=== PATIENT | female | born 1925 | race Caucasian/White ===

== ENCOUNTER 2016-08-29 10:59 | Inpatient (IN) | payer MEDICARE, BC ==
[2016-08-29] MEDS ORDERED: NS 0.9% 1000 ML* 1,000 ML IV SCH ×2 (12:45)
[2016-08-29 13:06] LABS: Hematocrit 35 % (35-47); Hemoglobin 11.6 g/dl (12.0-16.0); Mean Corpuscular HGB Conc 34 g/dl (31-36); Mean Corpuscular Hemoglobin 29 pg (27-31); Mean Corpuscular Volume 88 fL (80-97); Mean Platelet Volume 8 um3 (7.4-10.4); Red Blood Count 3.95 10^6/ul (4.0-5.4); Red Cell Distribution Width 16 % (10.5-15); White Blood Count 10.7 10^3/ul (3.5-10.8)
[2016-08-29 13:23] LABS: ALT 12 U/L (7-52); AST 19 U/L (13-39); Albumin 3.9 g/dL (3.2-5.2); Alkaline Phosphatase 71 U/L (34-104); Anion Gap 7 mmol/L (2-11); Blood Urea Nitrogen 30 mg/dL (6-24); C Reactive Protein 12.41 mg/L (< 5.00); CO2 Carbon Dioxide 24 mmol/L (22-32); Calcium 9.3 mg/dL (8.6-10.3); Chloride 99 mmol/L (101-111); Creatine Kinase 29 U/L (10-223); EGFR African American 44.4 (>60); EGFR Non-African American 34.6 (>60); Glucose 120 mg/dL (70-100); Lipase < 10 U/L (11.0-82.0); Magnesium 2.1 mg/dL (1.9-2.7); Potassium 4.1 mmol/L (3.5-5.0); Sodium 130 mmol/L (133-145); Total Protein 6.9 g/dL (6.4-8.9)
[2016-08-29 13:25] LABS: Troponin I 0.01 ng/mL (<0.04)
--- NOTE | 2016-08-29 13:30 | RAD ---
Indication: Shortness of breath. Single frontal view of the chest performed at 1305 hours was reviewed. Comparison is made with previous exam dated January 16, 2016. Cardiomegaly is noted. Interstitial edema consistent with CHF is noted. Pacemaker leads are in place. IMPRESSION: CARDIOMEGALY WITH EVIDENCE OF CHF.
[2016-08-29 13:57] LABS: TSH (Thyroid Stimulating Horm) 0.46 mcIU/mL (0.34-5.60)
[2016-08-29] MEDS ORDERED: Furosemide IV* 10 MG/ML VIAL (40 MG) IV ONE (14:12)
[2016-08-29 14:23] LABS: Urine Bilirubin Negative (Negative); Urine Glucose Negative (Negative); Urine Nitrite Negative (Negative)
--- NOTE | 2016-08-29 15:50 | ED ---
Martín Parry Auryana, scribed for Marie Yu MD on 08/29/16 at 1316 . Shortness of Breath - HPI Summary HPI Summary: 89 year old female presents with SOB starting last night. She reports that she noticed it during normal activity. She also reports edema - slightly improved form last night. She does report increased salt intake - states "TV dinner meatloaf' and a "hot dog". She denies any cough or any fevers. PMHx is significant for diastolic heart failure - Lasik (40 mg morning and 80 mg night) , atrial fibrillation, and PNA. She is on home O2 (PRN),. SHx is significant for alcohol - rare but denies any tobacco or any recreational drug use. PCP is Dr. Brigida Lucio. - History of Current Complaint Chief Complaint: EDShortnessOfBreath Time Seen by Provider: 08/29/16 13:33 Hx Obtained From: Patient Onset/Duration: Lasting Hours - since last night, Still Present Timing: Constant Current Severity: Mild Dyspnea At: Rest Associated Signs & Symptoms: Edema - and increased salt intake Related History: Similar Episode - PMHx of - see HPI - Allergy/Home Medications Allergies/Adverse Reactions: Allergies Allergy/AdvReac Type Severity Reaction Status Date / Time Lac Bovis Allergy Unknown Unknown Verified 01/22/16 17:35 [From Resource Dairy Thick] Reaction Details Starch Allergy Unknown Unknown Verified 01/22/16 17:35 [From Resource Dairy Thick] Reaction Details Tartrazine Allergy Unknown Unknown Verified 01/22/16 17:35 [From Resource Dairy Thick] Reaction Details Yellow Dye Allergy Unknown Unknown Verified 01/22/16 17:35 [From Resource Dairy Thick] Reaction Details Latex Allergy Rash Verified 01/22/16 17:35 Codeine AdvReac Severe Nausea And Verified 01/22/16 17:35 Vomiting Erythromycin AdvReac Severe Swelling Verified 01/22/16 17:35 Amiodarone AdvReac Intermediate See Comment Verified 01/22/16 17:35 crab Allergy Intermediate Unknown Uncoded 01/22/16 17:35 Reaction Details dairy Allergy Intermediate Unknown Uncoded 01/22/16 17:35 Reaction Details PMH/Surg Hx/FS Hx/Imm Hx Endocrine/Hematology History: Reports: Hx Anticoagulant Therapy - WAS ON EITHER LOVENOX OR HEPARIN, Hx Thyroid Disease - hypothyroid, Hx Anemia Denies: Hx Diabetes Cardiovascular History: Reports: Hx Auto Implanted Cardiovert Defib, Hx Congestive Heart Failure, Hx Coronary Artery Disease, Hx Deep Vein Thrombosis, Hx Embolism, Hx Hypercholesterolemia, Hx Hypertension, Hx Pacemaker/ICD, Hx Valvular Heart Disease Comment Only: Other Cardiovascular Problems/Disorders - HEART MONITOR Respiratory History: Reports: Hx Pleural Effusion, Hx Pneumonia, Other Respiratory Problems/Disorders - PNEUMONIA Comment Only: Hx Chronic Obstructive Pulmonary Disease (COPD) - Pt. denies GI History: Reports: Hx Gastroesophageal Reflux Disease Denies: Hx Jaundice History: Reports: Hx Kidney Stones Denies: Hx Renal Disease Musculoskeletal History: Reports: Hx Arthritis - LOWER BACK OA, Other Musculoskeletal History - L knee replacement Sensory History: Reports: Hx Cataracts, Hx Contacts or Glasses, Hx Macular Degeneration, Hx Vision Problem, Hx Deafness, Hx Hearing Aid Opthamlomology History: Reports: Hx Cataracts, Hx Contacts or Glasses, Hx Macular Degeneration, Hx Vision Problem Neurological History: Reports: Hx Migraine, Other Neuro Impairments/Disorders - macular degeneration Psychiatric History: Reports: Hx Depression - Surgical History Surgery Procedure, Year, and Place: [facility]. 2008 L TOTAL KNEE PA. CABG, cardiac catheterization. AORTIC VALVE REPLACEMENT. CARDIOVERSION 2013 (AFIB - NSR WITH 50 JOULES) Hx Anesthesia Reactions: No - Immunization History Date of Tetanus Vaccine: unknown Date of Influenza Vaccine: fall 2012 Infectious Disease History: No Infectious Disease History: Denies: Traveled Outside the [place] in Last 30 Days - Family History Known Family History: Positive: Other - No history of malignant hyperthermia or anesthesia reaction - Social History Occupation: Retired Lives: Alone Alcohol Use: None Hx Substance Use: No Substance Use Type: Reports: None Hx Tobacco Use: No Smoking Status (MU): Never Smoked Tobacco Review of Systems Positive: Other - increased salt intake . Negative: Fever Eyes: Negative ENT: Negative Cardiovascular: Negative Positive: Shortness Of Breath Gastrointestinal: Negative Genitourinary: Negative Positive: Edema Skin: Negative Neurological: Negative Psychological: Normal All Other Systems Reviewed And Are Negative: Yes Physical Exam - Summary Physical Exam Summary: General: Well appearing, no pain distress Skin: Warm, Skin Color Reflects Adequate Perfusion, Dry Eyes: EOMI, LENORE ENT: Pharynx normal, TMs normal Neck: Supple, nontender Respiratory: CTA, breath sounds present, no rhonchi, no wheezes; Crackles at the right base. Tachypnea. Cardiovascular: RRR, no murmur, no rub, no gallop Abdomen: Soft, nontender, Non-distended, no guarding, no rebound Bowel: Present Musculoskeletal: LEONEL, 2+ bilateral edema. Neuro: Sensory/motor intact, A&Ox3, CN intact 2-12 Psych: Affect/mood appropriate Triage Information Reviewed: Yes Vital Signs On Initial Exam: Initial Vitals Temp Pulse Resp BP Pulse Ox 97.8 F 82 20 110/57 98 08/29/16 11:07 08/29/16 11:07 08/29/16 11:07 08/29/16 11:07 08/29/16 11:07 Vital Signs Reviewed: Yes Diagnostics - Vital Signs Vital Signs Temp Pulse Resp BP Pulse Ox 08/29/16 13:00 70 107/63 93 08/29/16 12:30 74 28 109/61 96 08/29/16 12:04 81 27 96 08/29/16 12:03 107/67 08/29/16 11:07 97.8 F 82 20 110/57 98 - Laboratory Lab Results: Lab Results 08/29/16 Range/Units 13:00 WBC 10.7 (3.5-10.8) 10^3/ul RBC 3.95 L (4.0-5.4) 10^6/ul Hgb 11.6 L (12.0-16.0) g/dl Hct 35 (35-47) % MCV 88 (80-97) fL MCH 29 (27-31) pg MCHC 34 (31-36) g/dl RDW 16 H (10.5-15) % Plt Count 209 (150-450) 10^3/ul MPV 8 (7.4-10.4) um3 Neut % (Auto) 79.3 (38-83) % Lymph % (Auto) 9.8 L (25-47) % [place] % (Auto) 9.2 H (1-9) % Eos % (Auto) 0.6 (0-6) % Baso % (Auto) 1.1 (0-2) % Absolute Neuts (auto) 8.4 H (1.5-7.7) 10^3/ul Absolute Lymphs (auto) 1.0 (1.0-4.8) 10^3/ul Absolute Monos (auto) 1.0 H (0-0.8) 10^3/ul Absolute Eos (auto) 0.1 (0-0.6) 10^3/ul Absolute Basos (auto) 0.1 (0-0.2) 10^3/ul Absolute Nucleated RBC 0 10^3/ul Nucleated RBC % 0 Result Diagrams: 08/29/16 13:00 08/29/16 13:00 Lab Statement: Any lab studies that have been ordered have been reviewed, and results considered in the medical decision making process. - Radiology CXR Xray Interpretation: Positive (See Comments) - IMPRESSION: CARDIOMEGALY WITH EVIDENCE OF CHF. Radiology Interpretation Completed By: Radiologist - EKG 11:15 EKG Interpretation: paced rhythm Course/Dx - Course Course Of Treatment: 89 yo female with sob that started this am, given a dose of iv lasix here still sob pt to be admitted case discussed with Drs. Lucio and Benigno - Diagnoses Provider Diagnoses: Congestive heart failure - Physician Notifications Discussed Care of Patient With: Brigida Lucio Time Discussed With Above Provider: 14:30 Discharge - Discharge Plan Condition: Stable Disposition: ADMITTED TO [facility] The documentation as recorded by the Martín galo Auryana accurately reflects the service I personally performed and the decisions made by , Marie Yu MD.
[2016-08-29] MEDS ORDERED: Potassium Chlor TAB* 20 MEQ TAB.ER PO ONE (16:18)
[2016-08-29] MEDS ORDERED: Acetaminophen TAB* 325 MG PO PRN (16:19)
--- NOTE | 2016-08-29 16:35 | ADMNOTE ---
Subjective Date of Service: 08/29/16 Interval History: ADMISSION HISTORY AND PHYSICAL EXAM: Allergies Allergy/AdvReac Type Severity Reaction Status Date / Time Lac Bovis Allergy Unknown Unknown Verified 01/22/16 17:35 [From Resource Dairy Thick] Reaction Details Starch Allergy Unknown Unknown Verified 01/22/16 17:35 [From Resource Dairy Thick] Reaction Details Tartrazine Allergy Unknown Unknown Verified 01/22/16 17:35 [From Resource Dairy Thick] Reaction Details Yellow Dye Allergy Unknown Unknown Verified 01/22/16 17:35 [From Resource Dairy Thick] Reaction Details Latex Allergy Rash Verified 01/22/16 17:35 Codeine AdvReac Severe Nausea And Verified 01/22/16 17:35 Vomiting Erythromycin AdvReac Severe Swelling Verified 01/22/16 17:35 Amiodarone AdvReac Intermediate See Comment Verified 01/22/16 17:35 crab Allergy Intermediate Unknown Uncoded 01/22/16 17:35 Reaction Details dairy Allergy Intermediate Unknown Uncoded 01/22/16 17:35 Reaction Details Home Medications Medication Instructions Recorded Confirmed Type Acetaminophen TAB* [Tylenol TAB*] 650 mg PO Q4H PRN 03/14/13 01/22/16 History Furosemide TAB* [Lasix TAB*] 40 mg PO QPM 07/02/13 01/22/16 History Levothyroxine TAB* [Synthroid 25 50 mcg PO DAILY 07/02/13 01/22/16 History MCG TAB*] Multiple Vitamins W/ Minerals [Eye 1 cap PO DAILY 07/02/13 01/22/16 History Vitamins] Omeprazole CAP* [Prilosec CAP*] 20 mg PO DAILY PRN 07/02/13 01/22/16 History Potassium Chlor TAB* [POTASSIUM 40 meq PO BID 07/02/13 01/22/16 History TAB*] Furosemide TAB* [Lasix TAB*] 80 mg PO QAM 11/27/13 01/22/16 History Metoprolol Succinate [Metoprolol 50 mg PO QAM 11/27/13 01/22/16 History Succinate ER] Bioflavonoid Products [Vitamin C 1 tab PO DAILY 12/17/13 01/22/16 History Plus 500 mg] Diltiazem HCl Coated Beads 240 mg PO QAM 12/17/13 01/22/16 History [Cardizem LA] Folic Acid 800 mcg PO DAILY 12/17/13 01/22/16 History Metoprolol Succinate [Metoprolol 12.5 mg PO QAM 12/17/13 01/22/16 History Succinate ER] Multiple Vitamins W/ Minerals 1 cap PO BID 12/17/13 01/22/16 History [Preservision Areds] Albuterol 2.5MG/3ML (0.083%)* 2.5 mg INH Q4H 01/22/16 01/22/16 History [Ventolin 2.5 MG/3 ML NEB.JAYDE*] Fluticasone NASAL SPRAY 50MCG* 1 spray BOTH NARES DAILY 01/22/16 01/22/16 History [Flonase NASAL SPRAY 50MCG*] Warfarin TAB(*) [Coumadin TAB(*)] 3 mg PO 1700 01/22/16 01/22/16 History guaiFENesin ER TAB [Mucinex*] 600 mg PO QPM 01/22/16 01/22/16 History HPI: SOB started last night. She has a hospital bed and keeps the head elevated somewhat. She reports dietary indiscretion of eating a hot dog and twice a TV dinner the past 2 days. She weighs herslef every few days and last weighed herself 2 days ago. No chest pain. She reports taking all her meds as prescribed. Family History: Findings - Unremarkable Social History: Findings - No alcohol or tobacco use. Lives alone. Friend Brigida Sprague, is her SDM. 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, atrial fib, diastolic CHF with LVEF 60-65% 09/2015, hypothyroid, GERD, squamous cell skin ca Review of Systems - Measurements Intake and Output: Intake and Output Last 24 Hours 08/27/16 08/28/16 08/29/16 08/30/16 06:59 06:59 06:59 06:59 Weight 152 lb - Review of Systems Constitutional Symptoms: Positive: Other - didn't weigh herself last 2 days Dermatology: Positive: Skin Lesions, Cancer HEENT: Positive: Change in Hearing Eyes: Positive: Normal Thyroid: Positive: Primary Hypothyroidism Pulmonary: Positive: Shortness of Breath Cardiology: Positive: Shortness of Breath Gastroenterology: Positive: Normal Musculoskeletal: Positive: Joint Pain Endocrinology: Positive: Thyroid Problems Hematologic/Lymphatic: Negative: Anemia, Easy Brusing, Hx Leukemia, Hx Lymphoma, Use of Anticoagulant, Use of Antiplatelet Drugs, Other Neurology: Positive: Normal Psychiatry: Positive: Normal Allergic/Immunologic: Negative: Hx Anaphylaxis, Hx Angioedema, Hx Environmental, Hx Seasonal, Athsma, Hx HIV, Immunocompromise, Swollen Glands LymphNodes, Other Objective Active Medications: Acetaminophen (Tylenol Tab*) 650 mg PO Q4H PRN PRN Reason: PAIN Fluticasone Propionate (Flonase Nasal [place] 50mcg*) 1 spray BOTH NARES DAILY KEN Furosemide (Lasix Tab*) 40 mg PO QPM KEN Furosemide (Lasix Tab*) 80 mg PO QAM KEN Guaifenesin (Mucinex*) 600 mg PO QPM KEN Levothyroxine Sodium (Synthroid Tab*) 50 mcg PO DAILY KEN Multivitamins/Minerals (Preservision Areds(Multivitamins/Mineral)(Nf)) 1 cap PO BID KEN Non-Formulary Medication (Diltiazem Hcl Coated Beads [Cardizem La]) 240 mg PO QAM KEN Non-Formulary Medication (Folic Acid [Folic Acid]) 800 mcg PO DAILY EKN Omeprazole (Prilosec Cap*) 10 mg PO DAILY KEN Potassium Chloride (Klor Con Er Tab*) 40 meq PO BID KEN Warfarin Sodium (Coumadin Tab(*)) 3 mg PO 1700 KEN PRN Reason: Protocol Vital Signs 08/29/16 08/29/16 08/29/16 11:07 12:03 12:04 Temperature 97.8 F Pulse Rate 82 81 Respiratory 20 27 Rate Blood Pressure 110/57 107/67 (mmHg) O2 Sat by Pulse 98 96 Oximetry 08/29/16 08/29/16 12:30 13:00 Temperature Pulse Rate 74 70 Respiratory 28 Rate Blood Pressure 109/61 107/63 (mmHg) O2 Sat by Pulse 96 93 Oximetry Oxygen Devices in Use Now: Nasal Cannula Appearance: Alert, sitting up on ED stretcher. In good spirits. Looks comfortable. Neck: NL Appearance and Movements; NL JVP, No Thyroid Enlargement, Masses Respiratory: Symmetrical Chest Expansion and Respiratory Effort, Clear to Percussion, - - mod rales all lung garcia Cardiovascular: RRR, No Edema, - - 1-2/6 systolic murmur across precordium Skin: No Nodules or Sclerosis, - - mottled skin on face, recent bx/actinic changes, ? 5FU effect Neurological: Alert and Oriented x 3, NL Sensation Result Diagrams: 08/29/16 13:00 08/29/16 13:00 Additional Lab and Data: Lab Results 08/29/16 Range/Units 13:00 WBC 10.7 (3.5-10.8) 10^3/ul RBC 3.95 L (4.0-5.4) 10^6/ul Hgb 11.6 L (12.0-16.0) g/dl Hct 35 (35-47) % MCV 88 (80-97) fL MCH 29 (27-31) pg MCHC 34 (31-36) g/dl RDW 16 H (10.5-15) % Plt Count 209 (150-450) 10^3/ul MPV 8 (7.4-10.4) um3 Neut % (Auto) 79.3 (38-83) % Lymph % (Auto) 9.8 L (25-47) % [place] % (Auto) 9.2 H (1-9) % Eos % (Auto) 0.6 (0-6) % Baso % (Auto) 1.1 (0-2) % Absolute Neuts (auto) 8.4 H (1.5-7.7) 10^3/ul Absolute Lymphs (auto) 1.0 (1.0-4.8) 10^3/ul Absolute Monos (auto) 1.0 H (0-0.8) 10^3/ul Absolute Eos (auto) 0.1 (0-0.6) 10^3/ul Absolute Basos (auto) 0.1 (0-0.2) 10^3/ul Absolute Nucleated RBC 0 10^3/ul Nucleated RBC % 0 Assess/Plan/Problems-Billing Assessment: - Patient Problems (1) Diastolic dysfunction Current Visit: No Status: Active Priority: High Code(s): I51.9 - HEART DISEASE, UNSPECIFIED SNOMED Code(s): 1383217 Comment: Acute on chronic diastolic CHF, due in part to dietary indiscretion. Possible would do OK with more strict diet but might consider more effective diuretic regimen (EG increase dose of furosemide, change to torsemide, add spironolactone and/or metolazone). (2) Anticoagulant therapy Current Visit: No Status: Active Priority: Medium Code(s): Z79.01 - PENITENTIARY (CURRENT) USE OF ANTICOAGULANTS SNOMED Code(s): 50128283 Comment: Continue warfarin 3 mg daily. Should get her dose here 08/29. (3) Atrial fibrillation and flutter Current Visit: No Status: Active Priority: Medium Code(s): I48.91 - UNSPECIFIED ATRIAL FIBRILLATION; I48.92 - UNSPECIFIED ATRIAL FLUTTER SNOMED Code(s): 459945904 Comment: S/P ablation and PPM. Continue anticoagulation. (4) Hypothyroidism Current Visit: No Status: Active Priority: Low Code(s): E03.9 - HYPOTHYROIDISM, UNSPECIFIED SNOMED Code(s): 09928909 Comment: TSH wnl 08/29/16; continue home dose levothyroxine. (5) Replacement of aortic valve Current Visit: No Status: Active Priority: Low SNOMED Code(s): 66433269 - Replacement of aortic valve Comment: Trileaflet tissue valve functioning well echo 09/2015. FUp Dr. Rollins. (6) Skin cancer Current Visit: Yes Status: Acute Code(s): C44.90 - UNSPECIFIED MALIGNANT NEOPLASM OF SKIN, UNSPECIFIED SNOMED Code(s): 766955542 Comment: FUp with her software performance engineer.
[2016-08-29] MEDS: Furosemide IV* 10 MG/ML 10 ML VIAL (100 MG) IV ONE (16:49)
[2016-08-29] MEDS: Warfarin TAB(*) 3 MG PO SCH (18:30)
[2016-08-29] MEDS: guaiFENesin ER TAB 600 MG PO SCH (18:30)
[2016-08-29] MEDS: Furosemide TAB* 40 MG PO SCH (18:30)
[2016-08-29] MEDS: Potassium Chlor TAB* 20 MEQ TAB.ER PO SCH (20:33)
[2016-08-29] MEDS: PRESERVISION AREDS PO SCH (20:37)
[2016-08-30] MEDS: Levothyroxine TAB* 25 MCG TAB PO SCH (06:16)
[2016-08-30] MEDS: OMEPRAZOLE 10 MG PO SCH (07:21)
[2016-08-30] MEDS: Fluticasone NASAL SPRAY 50MCG* 16 gm SPRAY BTL BOTH NARES SCH (08:51)
[2016-08-30] MEDS: Diltiazem CD CAP* 240 MG PO SCH (08:51)
[2016-08-30] MEDS: Furosemide TAB* 40 MG PO SCH ×3 (08:52→17:55)
[2016-08-30] MEDS: Folic Acid TAB* 1 MG PO SCH (08:53)
[2016-08-30] MEDS: Potassium Chlor TAB* 20 MEQ TAB.ER PO SCH ×2 (08:54→20:16)
[2016-08-30] MEDS ORDERED: Albuterol HFA INHALER* 8 gm MDI INH PRN (10:57)
[2016-08-30] MEDS ORDERED: Furosemide IV* 10 MG/ML 10 ML VIAL (100 MG) IV ONE (11:00)
[2016-08-30] MEDS: PRESERVISION AREDS PO SCH ×2 (12:04→20:17)
[2016-08-30] MEDS: Metoprolol Succinate XL TAB* 25 MG PO SCH (12:17)
[2016-08-30] MEDS: Furosemide IV* 10 MG/ML 10 ML VIAL (100 MG) IV ONE (12:46)
[2016-08-30] MEDS: guaiFENesin ER TAB 600 MG PO SCH (17:55)
[2016-08-30] MEDS: Warfarin TAB(*) 3 MG PO SCH (17:55)
[2016-08-31] MEDS: Levothyroxine TAB* 25 MCG TAB PO SCH (05:30)
[2016-08-31 05:51] LABS: Hematocrit 34 % (35-47); Hemoglobin 11.2 g/dl (12.0-16.0); Mean Corpuscular HGB Conc 33 g/dl (31-36); Mean Corpuscular Hemoglobin 29 pg (27-31); Mean Corpuscular Volume 89 fL (80-97); Mean Platelet Volume 9 um3 (7.4-10.4); Red Blood Count 3.85 10^6/ul (4.0-5.4); Red Cell Distribution Width 15 % (10.5-15); White Blood Count 7.5 10^3/ul (3.5-10.8)
[2016-08-31 06:05] LABS: Albumin 3.2 g/dL (3.2-5.2); BUN/Creatinine Ratio 20.7 (8-20); C Reactive Protein 87.15 mg/L (< 5.00); Calcium 8.4 mg/dL (8.6-10.3); EGFR African American 73.9 (>60); EGFR Non-African American 57.5 (>60); Globulin 2.7 g/dL (2-4); Magnesium 1.9 mg/dL (1.9-2.7); Total Bilirubin 0.7 mg/dL (0.2-1.0); Total Protein 5.9 g/dL (6.4-8.9)
[2016-08-31] MEDS: Fluticasone NASAL SPRAY 50MCG* 16 gm SPRAY BTL BOTH NARES SCH (08:30)
[2016-08-31] MEDS: Metoprolol Succinate XL TAB* 25 MG PO SCH (08:31)
[2016-08-31] MEDS: Folic Acid TAB* 1 MG PO SCH (08:32)
[2016-08-31] MEDS: Furosemide TAB* 40 MG PO SCH ×2 (08:32→18:43)
[2016-08-31] MEDS: Diltiazem CD CAP* 240 MG PO SCH (08:33)
[2016-08-31] MEDS: Potassium Chlor TAB* 20 MEQ TAB.ER PO SCH ×2 (08:35→21:34)
[2016-08-31] MEDS: OMEPRAZOLE 10 MG PO SCH (08:36)
[2016-08-31] MEDS: PRESERVISION AREDS PO SCH ×2 (08:36→21:36)
[2016-08-31] MEDS ORDERED: Furosemide IV* 10 MG/ML 2 ML VIAL (20 MG) IV ONE (10:00)
[2016-08-31] MEDS ORDERED: Furosemide IV* 10 MG/ML 10 ML VIAL (100 MG) IV ONE (10:00)
[2016-08-31] MEDS ORDERED: Levofloxacin 500 MG IVPREMIX(* 500 MG/100 ML BAG IVPB ONE (11:00)
--- NOTE | 2016-08-31 11:14 | RAD ---
INDICATION: Short of breath COMPARISON: August 29, 2016 TECHNIQUE: PA and lateral dual-energy views were obtained. FINDINGS: Bones/Soft Tissues: There are no acute bony findings. There is sternotomy. There is left-sided cardiac pacemaker Cardiomediastinal: The cardiomediastinal silhouette is normal. Vascular congestive findings have significantly improved. Lungs: There are no infiltrates. Pleura: Tiny left-sided pleural effusion with presumed mild left basilar atelectasis. Other: None IMPRESSION: NEAR COMPLETE RESOLUTION OF VASCULAR CONGESTIVE FINDINGS.
[2016-08-31] MEDS: predniSONE TAB* 20 MG PO SCH ×2 (11:37→21:34)
[2016-08-31] MEDS: Warfarin TAB(*) 3 MG PO SCH (18:43)
[2016-08-31] MEDS: guaiFENesin ER TAB 600 MG PO SCH (18:45)
[2016-09-01] MEDS: Levothyroxine TAB* 25 MCG TAB PO SCH (05:57)
[2016-09-01 06:06] LABS: Hematocrit 35 % (35-47); Hemoglobin 11.7 g/dl (12.0-16.0); Mean Corpuscular HGB Conc 33 g/dl (31-36); Mean Corpuscular Hemoglobin 29 pg (27-31); Mean Corpuscular Volume 88 fL (80-97); Mean Platelet Volume 9 um3 (7.4-10.4); Red Blood Count 4.02 10^6/ul (4.0-5.4); Red Cell Distribution Width 15 % (10.5-15)
[2016-09-01 06:23] LABS: C Reactive Protein 57.75 mg/L (< 5.00); EGFR African American 67.1 (>60); EGFR Non-African American 52.2 (>60); Potassium 4.1 mmol/L (3.5-5.0)
[2016-09-01] MEDS: Folic Acid TAB* 1 MG PO SCH (08:25)
[2016-09-01] MEDS: OMEPRAZOLE 20 MG PO SCH (08:25)
[2016-09-01] MEDS: Potassium Chlor TAB* 20 MEQ TAB.ER PO SCH ×2 (08:25→20:41)
[2016-09-01] MEDS: Fluticasone NASAL SPRAY 50MCG* 16 gm SPRAY BTL BOTH NARES SCH (08:25)
[2016-09-01] MEDS: Diltiazem CD CAP* 240 MG PO SCH (08:26)
[2016-09-01] MEDS: Furosemide TAB* 40 MG PO SCH ×2 (08:26→17:23)
[2016-09-01] MEDS: Metoprolol Succinate XL TAB* 25 MG PO SCH (08:26)
[2016-09-01] MEDS: predniSONE TAB* 20 MG PO SCH ×2 (08:27→20:41)
[2016-09-01] MEDS: PRESERVISION AREDS PO SCH ×2 (08:45→20:41)
[2016-09-01] MEDS: Levofloxacin 250 MG IVPREMX(*) 250 MG/50 ML BAG IVPB SCH (11:01)
[2016-09-01] MEDS ORDERED: Furosemide IV* 10 MG/ML VIAL (40 MG) IV ONE (13:00)
[2016-09-01] MEDS ORDERED: Warfarin TAB(*) 2 MG PO ONE (17:00)
[2016-09-01] MEDS: guaiFENesin ER TAB 600 MG PO SCH (17:23)
[2016-09-02 05:44] LABS: Hematocrit 37 % (35-47); Hemoglobin 12.2 g/dl (12.0-16.0); Mean Corpuscular HGB Conc 33 g/dl (31-36); Mean Corpuscular Hemoglobin 29 pg (27-31); Mean Corpuscular Volume 88 fL (80-97); Mean Platelet Volume 8 um3 (7.4-10.4); Red Blood Count 4.16 10^6/ul (4.0-5.4); Red Cell Distribution Width 15 % (10.5-15); White Blood Count 10.5 10^3/ul (3.5-10.8)
[2016-09-02] MEDS: Levothyroxine TAB* 25 MCG TAB PO SCH (05:52)
[2016-09-02 05:56] LABS: BUN/Creatinine Ratio 25.5 (8-20); C Reactive Protein 26.32 mg/L (< 5.00); Calcium 9.3 mg/dL (8.6-10.3); EGFR African American 62.8 (>60); EGFR Non-African American 48.8 (>60); Potassium 4.2 mmol/L (3.5-5.0)
[2016-09-02] MEDS: OMEPRAZOLE 20 MG PO SCH (07:04)
[2016-09-02] MEDS: Potassium Chlor TAB* 20 MEQ TAB.ER PO SCH ×2 (08:25→20:03)
[2016-09-02] MEDS: Furosemide TAB* 40 MG PO SCH ×2 (08:25→17:27)
[2016-09-02] MEDS: Metoprolol Succinate XL TAB* 25 MG PO SCH (08:25)
[2016-09-02] MEDS: Folic Acid TAB* 1 MG PO SCH (08:26)
[2016-09-02] MEDS: predniSONE TAB* 20 MG PO SCH ×2 (08:26→20:03)
[2016-09-02] MEDS: Diltiazem CD CAP* 240 MG PO SCH (08:26)
[2016-09-02] MEDS: PRESERVISION AREDS PO SCH ×2 (08:30→20:09)
[2016-09-02] MEDS: Fluticasone NASAL SPRAY 50MCG* 16 gm SPRAY BTL BOTH NARES SCH (08:31)
[2016-09-02] MEDS: Levofloxacin 250 MG IVPREMX(*) 250 MG/50 ML BAG IVPB SCH (11:58)
[2016-09-02] MEDS ORDERED: Furosemide IV* 10 MG/ML 2 ML VIAL (20 MG) IV ONE (13:00)
[2016-09-02] MEDS ORDERED: Furosemide IV* 10 MG/ML VIAL (40 MG) IV ONE (13:00)
[2016-09-02] MEDS ORDERED: Warfarin TAB(*) 1 MG PO ONE (17:00)
[2016-09-02] MEDS ORDERED: Warfarin TAB(*) 3 MG PO SCH (17:00)
[2016-09-02] MEDS: guaiFENesin ER TAB 600 MG PO SCH (17:27)
[2016-09-03 05:12] LABS: Hematocrit 37 % (35-47); Hemoglobin 11.8 g/dl (12.0-16.0); Mean Corpuscular HGB Conc 32 g/dl (31-36); Mean Corpuscular Hemoglobin 29 pg (27-31); Mean Corpuscular Volume 88 fL (80-97); Mean Platelet Volume 9 um3 (7.4-10.4); Red Blood Count 4.14 10^6/ul (4.0-5.4); Red Cell Distribution Width 15 % (10.5-15); White Blood Count 9.1 10^3/ul (3.5-10.8)
[2016-09-03] MEDS: Levothyroxine TAB* 25 MCG TAB PO SCH (05:13)
[2016-09-03 05:26] LABS: Albumin 3.8 g/dL (3.2-5.2); BUN/Creatinine Ratio 26.2 (8-20); Calcium 9.1 mg/dL (8.6-10.3); EGFR African American 62.1 (>60); EGFR Non-African American 48.3 (>60); Globulin 3.1 g/dL (2-4); Potassium 4.3 mmol/L (3.5-5.0); Total Bilirubin 0.4 mg/dL (0.2-1.0); Total Protein 6.9 g/dL (6.4-8.9)
[2016-09-03] MEDS: Furosemide TAB* 40 MG PO SCH (08:03)
[2016-09-03] MEDS: OMEPRAZOLE 20 MG PO SCH (08:03)
[2016-09-03] MEDS: predniSONE TAB* 20 MG PO SCH (08:03)
[2016-09-03] MEDS: Potassium Chlor TAB* 20 MEQ TAB.ER PO SCH (08:03)
[2016-09-03] MEDS: Folic Acid TAB* 1 MG PO SCH (08:04)
[2016-09-03] MEDS: Fluticasone NASAL SPRAY 50MCG* 16 gm SPRAY BTL BOTH NARES SCH (08:04)
[2016-09-03] MEDS: Metoprolol Succinate XL TAB* 25 MG PO SCH (08:04)
[2016-09-03] MEDS: Diltiazem CD CAP* 240 MG PO SCH (08:04)
[2016-09-03] MEDS: PRESERVISION AREDS PO SCH (08:06)
[2016-09-03] MEDS: Levofloxacin 250 MG IVPREMX(*) 250 MG/50 ML BAG IVPB SCH (10:32)
[2016-09-03] MEDS ORDERED: predniSONE TAB* 20 MG PO ONE (11:00)
[2016-09-03] MEDS ORDERED: Furosemide IV* 10 MG/ML VIAL (40 MG) IV ONE (11:00)
[2016-09-03 11:18] VITALS: BP 112/63
== END 2016-09-03 11:45 | disposition home or self-care (01) | DRG 292 ==
LOC: ED 10:59 → MEDTELE 15:59
PROVIDERS: ADMIT Internal Medicine; ATTEND Internal Medicine Geriatric Medicine
DX: I50.33 Acute on chronic diastolic (congestive) heart failure (principal); I48.92 Unspecified atrial flutter; Z95.2 Presence of prosthetic heart valve; I48.91 Unspecified atrial fibrillation; E03.9 Hypothyroidism, unspecified; C44.90 Unspecified malignant neoplasm of skin, unspecified; J40 Bronchitis, not specified as acute or chronic; K21.9 Gastro-esophageal reflux disease without esophagitis; Z79.1 Long term (current) use of non-steroidal anti-inflammatories (NSAID); Z79.01 Long term (current) use of anticoagulants; Z79.899 Other long term (current) drug therapy; Z91.040 Latex allergy status; Z88.5 Allergy status to narcotic agent; Z88.1 Allergy status to other antibiotic agents; Z91.011 Allergy to milk products; Z91.013 Allergy to seafood; Z88.8 Allergy status to other drugs, medicaments and biological substances; Z91.048 Other nonmedicinal substance allergy status
CPT/HCPCS: 36415; 71010; 71020; 80048; 80053; 81003; 82550; 82553; 83605; 83690; 83735; 83880; 84443; 84484; 85025; 85027; 85610; 85730; 86140; 86141; 93005; A9270-GY; J1940; J1956; J7512